=== PATIENT | male | born 1975 | race Caucasian/White ===

== ENCOUNTER 2018-12-22 06:46 | Inpatient (IN) ==
[2018-12-22] MEDS ORDERED: LABETALOL IV ONE ×2 (07:20→11:40)
--- NOTE | 2018-12-22 07:28 | EKG Report ---
Test Performed on : 12/22/2018 07:07:30 AM Test Reason : HTN Blood Pressure : / mmHG Vent. Rate : 111 BPM Atrial Rate : 111 BPM P-R Int : 166 ms QRS Dur : 102 ms QT Int : 370 ms P-R-T Axes : 051 -24 120 degrees QTc Int : 503 ms Sinus tachycardia. Left ventricular hypertrophy with repolarization abnormality Inferior infarct , age undetermined Abnormal ECG No previous ECGs available Unconfirmed Result
--- NOTE | 2018-12-22 07:33 | PROVIDER DOCUMENTATION ---
HPI-Abdominal Pain/GI Problem - General Chief Complaint: Abdominal Pain Stated Complaint: ABD PAIN Time Seen by Provider: 12/22/18 07:19 Source: patient Allergies/Adverse Reactions: Patient Allergies Allergy/AdvReac Type Severity Reaction Status Date / Time Unable to Assess Allergy Unverified 12/22/18 07:22 Home Medications: Home Medication List Medication Instructions Recorded Confirmed Last Taken Type Metoprolol Tartrate [Lopressor] 100 mg PO DAILY 12/22/18 12/22/18 12/01/18 History 100 mg Valsartan 320 mg PO DAILY 12/22/18 12/22/18 12/01/18 History - History of Present Illness-ABD Nature of Presenting Problems: generalized sgharp abd pain, intermittent for 4-5 days. Nothing makes better nor worse. No N/V/ or change in BM. At triage, was found to be hypertensive. Takes metoprolol and valsartan, but has been out for a week. No headache, no CP, no change in his chronic SOB Abdominal Pain Onset Location: reports: generalized abdomen Pain Radiation: reports: other (suprapubicx) Review of Systems - Adult - REVIEW OF SYSTEMS - ADULT Constitutional: reports: see HPI Eyes: reports: no symptoms reported Ears, Nose, Mouth & Throat: reports: no symptoms reported Cardiovascular: reports: no symptoms reported Respiratory: reports: see HPI Gastrointestinal: reports: see HPI Genitourinary: reports: no symptoms reported Musculoskeletal: reports: no symptoms reported Integumentary: reports: no symptoms reported Neurological: reports: no symptoms reported Psychiatric: reports: no symptoms reported Endocrine: reports: no symptoms reported Hematologic/Lymphatic: reports: no symptoms reported Allergic/Immunologic: reports: no symptoms reported Past History - Adult - PAST MEDICAL HISTORY-ADULT Review of Records: reports: Nursing Assessment Review, Medications Reviewed Cardiovascular: reports: HTN Respiratory: reports: denies history Gastrointestinal: reports: denies history Genitourinary: reports: denies history Musculoskeletal: reports: denies history Neurological: reports: denies history Psychiatric: reports: denies history Endocrine/Immune: reports: denies history Physical Exam-General - PHYSICAL EXAM-ADULT Initial Vital Signs Reviewed: Yes - CONSTITUTIONAL General Appearance: appears well, alert - EYES Eyes: PERRL/EOMI, pink conjunctivae - HEAD, EARS, NOSE, MOUTH & THROAT HENMT: normocephalic/atraumatic, moist mucous membranes, normal ENT inspection, pharynx normal - NECK Neck: full range of motion, supple, normal inspection - RESPIRATORY Respiratory: lungs clear, normal breath sounds, no pleuratic chest pain, no respiratory distress, no accessory muscle use - CARDIOVASCULAR Cardiovascular: normal peripheral pulses, regular rate, rhythm, no edema, no gal lop, no murmur - GASTROINTESTINAL (ABDOMEN) Abdominal Exam: normal bowel sounds, soft, distended (slighty), tenderness (ild- mod to Bilat LQ, cassandra-umbilical, epigastric) - MUSCULOSKELETAL Back Exam: normal inspection, no CVA tenderness, no vertebral tenderness Extremity: normal range of motion, non-tender, normal gait, normal inspection, no pedal edema - SKIN Integumentary: normal color, normal turgor, warm/dry - 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, grossly normal, no motor/sensory deficits - PSYCHIATRIC Psych/Mental Status: normal mood/affect, normal thought content, normal thought process, oriented x 3 Progress - PLAN OF CARE/RESULTS Progress/Plan/Lab Results: Vital Signs - 8 hr 12/22/18 06:56 12/22/18 07:07 Temperature 98.7 F Pulse Rate 93 H Respiratory Rate 20 Blood Pressure 270/179 O2 Sat by Pulse Oximetry 97 Orders Category Date Time Status Nursing- Obtain EKG ONCE Care 12/22/18 07:20 Active CHEST-1 VIEW [RAD] Stat Exams 12/22/18 07:20 Ordered CBC WITH DIFF [HEME] Stat Lab 12/22/18 07:20 Uncollected COMPREHENSIVE METABOLIC PANEL [CHEM] Stat Lab 12/22/18 07:20 Uncollected URINALYSIS [URINALYSIS] Stat Lab 12/22/18 07:20 Uncollected URINE DRUG SCREEN Stat Lab 12/22/18 07:21 Uncollected Labetalol Med 12/22/18 07:20 Discontinued 20 mg IV NOW ONE EKG [EKG] Stat Ther 12/22/18 07:20 Ordered Result Diagrams: 12/22/18 07:17 12/22/18 07:17 - EKG 1 Time of EKG reading by physician:: 07:13 EKG Read and Signed by:: Rajiv Garcia EKG Interpretation (*Must complete 3 of following elements*): Abnormal Rate: 111 Rhythm: sinus tach QRS: LVH (w) ST Wave: non-specific ST changes (repol changes from LVH) 2 Time of EKG reading by physician:: 08:20 EKG Read and Signed by:: Rajiv Garcia EKG Interpretation (*Must complete 3 of following elements*): Abnormal Rate: 93 Rhythm: NSR [place]: normal QRS: poor R wave progression, LVH ST Wave: non-specific ST changes Comments: prolonged QT - XRAY 1 XRAY Study: Chest Impression: Abnormal (cardiomegaly) - CT/MRI 1 CT Study: Abdomen, Pelvis Impression: Abnormal (EXAM: CT ABDOMEN/PELVIS W/O CONTRAST 12/22/2018 HISTORY: abd pain, and GFR too low TECHNIQUE: This exam was performed using automated exposure control, adjustment of mA or kV according to patient size, and/or use of iterative reconstruction technique. COMMENT: There are no previous studies available for comparison. There is cardiomegaly. There is a pericardial effusion which anteriorly measures over 8 mm in thickness. There is some motion artifact. There is no definite evidence of acute pulmonary disease in the visualized portion of the chest. There is subphrenic fluid present bilaterally. The spleen is not enlarged. The adrenal glands are not enlarged. There is no evidence of nephrolithiasis or hydronephrosis. Both kidneys are slightly atroph ic in appearance. The gallbladder isn't slightly distended. There are no discrete stones present. There is some gastrohepatic adenopathy with a node measuring over 2.2 cm. There is marked mesenteric adenopathy with a node on image 84 measuring in excess of 4.1 cm in length. There is an infrarenal left periaortic node measuring 2.4 x 1.9 cm. There is a small amount of fluid in the right paracolic gutter. There is apparent wall thickening in a loop of small bowel on the left side of the abdomen seen best around image 104 with induration in the surrounding mesenteric fat. The appendix is not enlarged or inflamed in appearance. There is some edema around the umbilicus. The colon is not distended . There is some stool in the colon particularly in the ascending and transverse colon. There is no evidence of mucosal thickening in the colon. There is a segment of the distal descending colon around image 135 which is nondistended. There is free fluid in the rectovesical pouch. There is diverticulosis in the sigmoid colon without evidence of acute diverticulitis. The urinary bladder is not distended. There is marked external iliac adenopathy bilaterally. There is a bone island in the right femoral head and another on the left. There is bilateral spondylolysis at L5 without evidence of spondylolisthesis. Otherwise are has no evidence of acute bony abnormality. IMPRESSION: 1. Retroperitoneal and mesenteric adenopathy consistent with lymphoma. 2. The possibility of lymphomatous involvement in the mid jejunum cannot be excluded. Less likely would be a primary lesion of the small bowel. 3. Cardiomegaly and pericardial effusion. 4. Minimal ascites. Other nonacute findings as described above. Electronically signed by Rubén Krause 12/22/2018 9:20 AM) - CONSULTS/PCP/HOSPITALIST Notification #1 *Consult/PCP/Hospitalist*: [place] Time Discussed: 10:11 Consult Disposition: Will see in ED, Admit Departure - Departure Date of Disposition Decision: 12/22/18 Time of Disposition Decision: 08:29 DIAGNOSIS: Acute kidney injury, Non-compliance Lymphoma Qualifiers: Lymphoma type: unspecified type Lymphoma site: intra-abdominal nodes Qualified Code(s): C85.93 - Non-Hodgkin lymphoma, unspecified, intra-abdominal lymph nodes Hypertension Qualifiers: Hypertension type: essential hypertension Qualified Code(s): I10 - Essential (primary) hypertension Disposition: ADMITTED INPATIENT 09 Certified Medical Emergency: Emergent Condition: Good Referrals and Follow-Ups: None,PCP [Primary Care Provider] - - Critical Care Note This patient required my direct & personal management of CC.: No Attestation - Physician/ PATY Attestation Patient care was provided by Advanced Practice Provider:: No The physician spent face to face time with patient:: Yes Advanced Practice Provider documentation review:: Supervising physician onsite and consulted in the evaluation and care of this patient. The physician did have a face to face encounter with the patient.
--- NOTE | 2018-12-22 07:36 | Diag Imaging Result Doc PS360 ---
EXAM: CHEST-1 VIEW 12/22/2018 HISTORY: HTN TECHNIQUE: AP portable upright at 0729 COMMENT: There is cardiomegaly. The inspiration is suboptimal. No evidence of acute pulmonary disease is present and there are no previous studies available for comparison. IMPRESSION: Cardiomegaly. Electronically signed by Rubén Krause 12/22/2018 7:34 AM
[2018-12-22] MEDS ORDERED: MORPHINE IV ONE (07:49)
[2018-12-22 08:18] LABS: URINE SOURCE CLEAN CATCH
[2018-12-22 08:24] LABS: BASO# 0.05 X1000 (0.0-0.2); BASO% 0.2 % (0.0-0.8); EOS# 0.15 X1000 (0.0-0.7); EOS% 0.6 % (0.0-10.0); HEMATOCRIT 38.1 % (42.0-52.0); IMM GRAN# 0.09 X1000 (0.0-0.04); IMM GRAN% 0.4 % (0.0-0.5); LYMPH% 6.6 % (20.5-51.1); MCH 25.8 PG (27-31); MCHC 34.1 g/dL (33-37); MCV 75.6 FL (81-99); MONO# 1.75 X1000 (0.11-0.59); MONO% 7.2 % (1.7-9.3); MPV 12.6 FL (7.4-10.4); NEUT# 20.52 X1000 (1.4-6.5); PLT 133 X1000 (130-400); RBC 5.04 XMIL (4.7-6.1); RDW 15.7 % (11.5-14.5); WBC 24.16 X1000 (4.8-10.8)
[2018-12-22 08:27] LABS: ALBUMIN 2.8 g/dL (3.5-5.0); CALCIUM 7.1 mg/dL (8.8-10.2); CREATININE 5.6 mg/dL (0.7-1.2); POTASSIUM 3.8 mmol/L (3.5-5.1); TOTAL BILIRUBIN 0.32 mg/dL (0.20-1.00); TOTAL PROTEIN 5.6 g/dL (6.3-8.3)
[2018-12-22 08:37] LABS: BILIRUBIN URINE NEGATIVE (NEGATIVE); BLOOD URINE MODERATE (NEGATIVE); COLOR YELLOW; GLUCOSE URINE 100 mg/dL (NEGATIVE); KETONE URINE NEGATIVE (NEGATIVE); LEUKOCYTES URINE NEGATIVE (NEGATIVE); NITRITE URINE NEGATIVE (NEGATIVE); PROTEIN URINE 300 mg/dL (NEGATIVE); SP GRAVITY URINE 1.019; TURBIDITY URINE CLEAR (CLEAR); UROBILINOGEN URINE NORMAL (NORMAL)
[2018-12-22 08:38] LABS: UR EPITHELIAL CELLS <10 /HPF (<10); URINE BACTERIA NEGATIVE /HPF; URINE WBC <10 /HPF (<10)
--- NOTE | 2018-12-22 09:23 | Diag Imaging Result Doc PS360 ---
EXAM: CT ABDOMEN/PELVIS W/O CONTRAST 12/22/2018 HISTORY: abd pain, and GFR too low TECHNIQUE: This exam was performed using automated exposure control, adjustment of mA or kV according to patient size, and/or use of iterative reconstruction technique. COMMENT: There are no previous studies available for comparison. There is cardiomegaly. There is a pericardial effusion which anteriorly measures over 8 mm in thickness. There is some motion artifact. There is no definite evidence of acute pulmonary disease in the visualized portion of the chest. There is subphrenic fluid present bilaterally. The spleen is not enlarged. The adrenal glands are not enlarged. There is no evidence of nephrolithiasis or hydronephrosis. Both kidneys are slightly atrophic in appearance. The gallbladder isn't slightly distended. There are no discrete stones present. There is some gastrohepatic adenopathy with a node measuring over 2.2 cm. There is marked mesenteric adenopathy with a node on image 84 measuring in excess of 4.1 cm in length. There is an infrarenal left periaortic node measuring 2.4 x 1.9 cm. There is a small amount of fluid in the right paracolic gutter. There is apparent wall thickening in a loop of small bowel on the left side of the abdomen seen best around image 104 with induration in the surrounding mesenteric fat. The appendix is not enlarged or inflamed in appearance. There is some edema around the umbilicus. The colon is not distended. There is some stool in the colon particularly in the ascending and transverse colon. There is no evidence of mucosal thickening in the colon. There is a segment of the distal descending colon around image 135 which is nondistended. There is free fluid in the rectovesical pouch. There is diverticulosis in the sigmoid colon without evidence of acute diverticulitis. The urinary bladder is not distended. There is marked external iliac adenopathy bilaterally. There is a bone island in the right femoral head and another on the left. There is bilateral spondylolysis at L5 without evidence of spondylolisthesis. Otherwise are has no evidence of acute bony abnormality. IMPRESSION: 1. Retroperitoneal and mesenteric adenopathy consistent with lymphoma. 2. The possibility of lymphomatous involvement in the mid jejunum cannot be excluded. Less likely would be a primary lesion of the small bowel. 3. Cardiomegaly and pericardial effusion. 4. Minimal ascites. Other nonacute findings as described above. Electronically signed by Rubén Krause 12/22/2018 9:20 AM
[2018-12-22 09:32] LABS: UR AMPHETAMINES QUAL PRESUMPTIVE POSITIVE (NONE DETECT); UR BARBITUATES QUAL NONE DETECTED (NONE DETECT); UR BENZODIAZEPIN QUAL NONE DETECTED (NONE DETECT); UR OPIATES QUAL NONE DETECTED (NONE DETECT)
[2018-12-22 09:33] LABS: UR CANNABINOIDS QUAL NONE DETECTED (NONE DETECT); UR COCAINE QUAL NONE DETECTED (NONE DETECT); UR METHADONE QUAL NONE DETECTED (NONE DETECT); UR OXYCODONE QUAL NONE DETECTED (NONE DETECT); UR PCP QUAL NONE DETECTED (NONE DETECT)
[2018-12-22 09:57] LABS: BANDS 2 % (0-1); LYMPHS 8 % (21-51); SEGS 90 % (42-75)
[2018-12-22] MEDS ORDERED: CARDENE 20 MG/NS 20 MG/200 ML PIGGYBACK IV SCH (11:00)
[2018-12-22 13:01] LABS: HEMOGLOBIN A1C 6.4 % (4.8-6.0)
--- NOTE | 2018-12-22 13:21 | Diag Imaging Result Doc PS360 ---
EXAM: CT THORAX W/O CONTRAST 12/22/2018 HISTORY: lymphoma TECHNIQUE: This exam was performed using automated exposure control, adjustment of mA or kV according to patient size, and/or use of iterative reconstruction technique. COMMENT: There is dependent atelectasis present in the right lower lobes and lingula particularly the right lower lobe. There is no evidence of significant adenopathy in the mediastinum hilum or axilla. The heart size is enlarged. There is a small pericardial effusion which measures less than 5 mm in thickness anteriorly. There is fluid in the subphrenic spaces bilaterally. There is a fairly large amount of stool present in the transverse colon. The regional skeleton appears to be intact. IMPRESSION: Atelectasis particularly in the right lower lobe. Small pericardial effusion. Ascites. Constipation. Electronically signed by Rubén Krause 12/22/2018 1:18 PM
[2018-12-22] MEDS: CARDENE 20 MG/NS 20 MG/200 ML PIGGYBACK IV SCH ×4 (13:38→23:11)
--- NOTE | 2018-12-22 13:40 | HISTORY AND PHYSICAL ---
PRIMARY CARE PROVIDER: Unknown. CHIEF COMPLAINT: The patient could not remember after given morphine. However, per EMR for abdominal pain. HISTORY OF PRESENT ILLNESS: Mr. Zarate is a 43-year-old male who carries a past medical history of hypertension, takes metoprolol and valsartan. However, he has been out for some time. He reported to the ED with generalized sharp abdominal pain that has been intermittent for the last 4 to 5 days. Nothing made it better or worse. No nausea, vomiting, or change in BM. In triage, he was found to be hypertensive 200's/150s. Further workup in the ER showed a white count of 24. Acute renal failure with a BUN of 86 and a creatinine of 5.6. Abdomen and pelvis CT showed retroperitoneal mesenteric adenopathy consistent with lymphoma, cardiomegaly with a pericardial effusion and minimal ascites. The patient was unable to give much of a history secondary to being given morphine. He had to be awakened several times upon examination, I could not get a good history on him. We will admit him to the ICU. His blood pressures were still 220s over 150s. We will start him on a Cardene drip. We will consult Oncology, Cardiology, as well as Nephrology for further workup and evaluation. PAST MEDICAL HISTORY: Hypertension. PAST SURGICAL HISTORY: Denies but unknown. SOCIAL HISTORY: He reports he is not . No children, and all of his family is . He was not able to tell me where he is from. He reports no tobacco, alcohol or illicit drug use. However, his tox screen was positive for amphetamines. FAMILY HISTORY: He believes his mother of CHF. He reports his father is . He could not remember why. REVIEW OF SYSTEMS: Hard to obtain secondary to the patient getting morphine. PHYSICAL EXAMINATION: VITAL SIGNS: Temperature 98.7 degrees, heart rate 99, respirations 28, blood pressure 212/152, and O2 is 96 on room air. GENERAL: Mr. Zarate is a sedated 43-year-old male who does wake up to tactile stimuli, but goes right back to sleep. He was really not able to participate during the examination, and seemed be unphased of his test results. HEENT: Atraumatic, normocephalic. PERRL. NECK: Supple. Trachea midline. CARDIOVASCULAR: S1, S2 appreciated. No murmurs, gallops, or rubs noted. RESPIRATORY: Lung sounds clear bilaterally GI: Soft, and appears to be nontender. Nondistended. Positive bowel sounds 4 quadrants. EXTREMITIES: Lower extremities are negative for edema. NEUROLOGIC: Hard to assess secondary to the patient getting morphine, however, could not appreciate any focal deficits. DIAGNOSTIC DATA: As per HPI. LABORATORY DATA: White count 24, hemoglobin and hematocrit 13 and 38, and platelet count is 133,000. Sodium 132, potassium 3.8, BUN 86, creatinine 5.6, blood glucose is 184. Urinalysis has 300 protein, 100 glucose, moderate blood, negative for nitrates, negative for bacteria. Toxicology screen was positive for amphetamines. ASSESSMENT AND PLAN: 1. Hypertensive urgency. We will place the patient in the ICU. Initiate him on a Cardene drip. Consult Cardiology. 2. Retroperitoneal mesenteric adenopathy consistent with lymphoma. We will consult Dr. Hampton for further testing and evaluation. 3. Cardiomegaly and pericardial effusion. We will get an echocardiogram as well as consult Cardiology. 4. Acute renal failure with atrophic kidneys. We will consult Dr. Alba for further evaluation and treatment. 5. Hypertension. The patient does take metoprolol and losartan at home. However, there is question of his medical compliance. 6. Leukocytosis: Likely reactive. No obvious source of infection. 7. Hyperglycemia. We will check hemoglobin A1c. Continue with pattern blood sugars. 8. Proteinuria secondary to uncontrolled hypertension. 9. Anemia. Continue with further testing. 10. Further recommendation to follow physician evaluation. 11. Mild hyponatremia. 12. Further recommendations to follow physician evaluation, laboratory and diagnostic data. Dictated by MIGUELITO Arevalo for Delmy Rosales MD cc: MD Izabela Rocha MD Reginald D. Gladish, MD William D. Denney, MD I performed a face to face encounter on the patient. I reviewed all labs and imaging on the patient. I agree with the H&P as dictated. [facility]
[2018-12-22] MEDS: NS 1,000 ML IV SCH ×2 (13:47→23:20)
[2018-12-22 13:52] LABS: AMYLASE 59 U/L (20-200); LIPASE 17 U/L (13-60)
--- NOTE | 2018-12-22 14:24 | EKG Report ---
Test Performed on : 12/22/2018 08:15:05 AM Test Reason : ED.. No order in [place] Blood Pressure : / mmHG Vent. Rate : 093 BPM Atrial Rate : 093 BPM P-R Int : 180 ms QRS Dur : 098 ms QT Int : 420 ms P-R-T Axes : 054 -16 130 degrees QTc Int : 522 ms Normal sinus rhythm. Possible Left atrial enlargement Left ventricular hypertrophy Cannot rule out Septal infarct , age undetermined Inferior infarct (cited on or before 22-DEC-2018) ST & T wave abnormality, consider lateral ischemia Prolonged QT Abnormal ECG When compared with ECG of 22-DEC-2018 07:07, (Unconfirmed) Minimal criteria for Septal infarct are now present Unconfirmed Result
[2018-12-22 14:38] LABS: URINE SOURCE CATH
[2018-12-22 14:44] LABS: BILIRUBIN URINE NEGATIVE (NEGATIVE); BLOOD URINE MODERATE (NEGATIVE); COLOR YELLOW; GLUCOSE URINE 100 mg/dL (NEGATIVE); KETONE URINE NEGATIVE (NEGATIVE); LEUKOCYTES URINE NEGATIVE (NEGATIVE); NITRITE URINE NEGATIVE (NEGATIVE); PH URINE 5.5; PROTEIN URINE 300 mg/dL (NEGATIVE); SP GRAVITY URINE 1.016; TURBIDITY URINE CLEAR (CLEAR); UROBILINOGEN URINE NORMAL (NORMAL)
[2018-12-22 14:47] LABS: UR EPITHELIAL CELLS <10 /HPF (<10); URINE BACTERIA NEGATIVE /HPF; URINE RBC <10 /HPF (<10); URINE WBC <10 /HPF (<10)
--- NOTE | 2018-12-22 16:02 | ECHO REPORT ---
ORDER DATE: 12/22/2018 INTERPRETING PHYSICIAN: Manuelito Dunbar MD. CLINICAL INDICATIONS: Pericardial effusion. M-MODE MEASUREMENTS: Left ventricle end diastole: 4.4 cm. Left ventricle end systole: 3.4 cm. Posterior wall: 1.6 cm. Interventricular septum: 1.6 cm. Left atrium: 4.3 cm. Aortic diameter: 3.7 cm. SUMMARY OF 2-DIMENSIONAL IMAGIN. There is moderate concentric LVH. Left ventricular systolic function appears to be moderately decreased estimated in the order of 40% to 45%. The impairment appears to be global. 2. A small pericardial effusion appears to be present. 3. The atria are not particularly dilated. 4. The mitral valve shows [id number] degree of regurgitation. 5. Pulse wave Doppler of mitral inflow shows "normal" E/A ratio. 6. Tissue Doppler of septal and lateral mitral annulus averages 6 cm. The deceleration of slope of the E wave is short suggesting elevation of left atrial pressure. The E/E prime ratio is borderline elevated. 7. The LVOT VTI is decreased at 13.5 cm suggesting that the patient may be in a low cardiac output state. 8. The aortic valve is not significantly calcified. There is trivial degree of aortic valve regurgitation. 9. The tricuspid valve shows mild degree of regurgitation. 10.Inferior vena cava is not dilated. 11.Pulmonary pressure is estimated at 34 mmHg. 12.Pulmonic valve was unremarkable. 13.Optison was added to optimize visualization of endocardium. Clinical correlation is recommended. cc: Manuelito Dunbar MD
[2018-12-22] MEDS: HUMULIN R SUBQ SCH ×2 (17:00→23:18)
[2018-12-22 17:08] LABS: BLOOD TYPE ARTERIAL; SAMPLE BLOOD
[2018-12-22 17:09] LABS: ALLEN TEST YES; BE -8.3 mmoll (-3.0-3.0); HCO3-(ACT) 18.4 mmoll (20.0-26.0); METHB 1.1 % (0.0-1.5); MODALITY ROOM AIR; O2(CT) 15.8 mL/dL (15.0-23.0); O2HB 94.1 % (95.0-99.0); PCO2(98.6) 27 mmHg (35-45); PO2(98.6) 76 mmHg (60-100); SAO2 96.7 % (95.0-100.0); THB 11.9 g/dL (11.5-17.4); pH(98.6) 7.37 (7.35-7.45)
[2018-12-22 17:38] LABS: CK INDEX 1.9 (0.0-2.5); CK-MB 8.9 ng/mL (0.0-5.0)
[2018-12-22] MEDS: ZYVOX 600 MG/D5W 600 MG/300 ML IVPB IV SCH (17:52)
[2018-12-22] MEDS: MAXIPIME 1 GM in NS 50 ML IV SCH (17:52)
[2018-12-22 19:05] LABS: UR PROT RANDOM 187.3 mg/dL
[2018-12-22 19:07] LABS: UR CREAT RANDOM 86.7 mg/dL (14-26)
[2018-12-22] MEDS: TRANDATE PO SCH (20:04)
[2018-12-22] MEDS: COLACE PO SCH (20:06)
[2018-12-22] MEDS: MIRALAX PO SCH (20:06)
[2018-12-22] MEDS: DULCOLAX PR SCH (20:06)
[2018-12-22] MEDS: MORPHINE IV PRN (20:07)
[2018-12-22] MEDS ORDERED: HEPARIN SUBQ SCH (21:00)
--- NOTE | 2018-12-22 21:34 | CONSULTATION ---
DATE OF CONSULTATION: 12/22/2018 IMPRESSION: 1. Severe hypertension in setting of recent noncompliance with a 2-drug antihypertensive regimen. 2. Hypertensive cardiovascular disease with moderate concentric left hypertrophy on echocardiography, with left ejection fraction of 40% 45% and mild moderate mitral regurgitation. 3. Acute on chronic renal failure with reportedly atrophic kidneys. 4. Abdominal pain as presenting symptom with retroperitoneal mesenteric adenopathy demonstrated on imaging studies, suggesting likely lymphoma. RECOMMENDATIONS: 1. Agree with use of nicardipine drip parenterally to try bring blood pressure under control. 2. Add labetalol orally. HISTORY: This is a 43-year-old white male with a past history of hypertension requiring a 2-drug regimen who was admitted for further management of hypertensive urgency. He has been on a beta- manuel and ARB in the past for his blood pressure. Relates that he ran out a month ago. For the last several days, he has been having abdominal discomfort which prompted him to come to the emergency room. There, he was noted to be severely hypertensive. CT scan demonstrated retroperitoneal and mesenteric adenopathy consistent with lymphoma. He has been started on a nicardipine drip and admitted to the ICU, and his blood pressure is less elevated at this time. There has been no chest pain. He has some chronic tendency for exertional shortness of breath. He does not smoke. He drinks an occasional alcoholic beverage. He admits to smoking methamphetamine and did so recently. PAST MEDICAL HISTORY: Hypertension. MEDICATIONS PRIOR TO ADMISSION: Include a beta manuel and ARB. ALLERGIES: Has no known drug allergies. SOCIAL HISTORY: He is single. 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 He does not smoke or use alcohol. He does admit to use of methamphetamine, which he smokes. FAMILY HISTORY: Negative for premature coronary disease. REVIEW OF SYSTEMS: Pulmonary: Noteworthy for tendency for prominent snoring. He has been advised to have screening for sleep apnea in the past. He has some chronic exertional shortness of breath but no orthopnea. There has been no cough. Gastrointestinal: Noteworthy for abdominal pain but otherwise negative. Constitutional: Noncontributory. Remainder of the review of systems negative/noncontributory with 14 total systems reviewed. PHYSICAL EXAMINATION: General: This is an obese adult male in no distress. He is somewhat drowsy, as the parenteral narcotic administered in emergency room is wearing off. Vital signs: Blood pressure 157/96, heart rate 101. Oxygen saturation 91% on room air. HEENT: Extraocular movements intact. Mucous membranes moist. Neck: Supple. Jugular venous pressure appears to be mildly elevated. Chest: Clear to auscultation. Cardiac Exam: Reveals a regular rate and rhythm without appreciable murmur or gallop. Abdomen: Soft. Bowel sounds normal. Extremities: Demonstrate trace edema. Neurologic: Reveals him to be drowsy but interactive. Speech is fluent. He moves all 4 extremities equally well. PERTINENT DATA: A 12-lead electrocardiogram demonstrates normal sinus rhythm, left atrial abnormality, and left ventricular hypertrophy with repolarization abnormality. LABORATORY DATA: Includes a white blood cell count 24.16, hematocrit 38.1, hemoglobin 13.0 platelet count 133, sodium 132, potassium 3.8, chloride 97, carbon dioxide 14, BUN 86, creatinine 5.6, glucose 184. Amylase 59, lipase 17, albumin 2.8. Toxicology/urine drug screen positive for amphetamines. Echocardiography reports moderate concentric left hypertrophy with estimated left ejection fraction of 40% to 45%, mild to moderate mitral regurgitation. cc: Darian Story MD
--- NOTE | 2018-12-22 21:35 | NEPHROLOGY CONSULTATION ---
DATE: 12/22/2018 REASON FOR ADMISSION: Complaints of abdominal discomfort. REASON FOR CONSULT: Is acute kidney injury, assistance with medical management. CONSULTING PHYSICIAN: Dr. Delmy Rosales. HISTORY OF PRESENT ILLNESS: Mr. Zarate is a 43-year-old male who has a history of hypertension who states he takes metoprolol and valsartan. He stated that he had reported to the Emergency Room Department after sharp abdominal discomfort for the last 4 to 5 days. He denies any vomiting, nausea, no change of bowel movement. States that he has not been able to peanut picker his blood pressure medication in the last 5 days after he had run out. Blood pressure upon presentation in the emergency room was 200s over the 150s. In the emergency room he was found to have a white count of 24.16, a BUN of 86, a creatinine of 5.6. Hemoglobin stable at 13. CT of the abdomen showed retroperitoneal mesenteric adenopathy consistent with lymphoma near the jejunum, cardiomegaly with pericardial effusions and minimal ascites and constipation. The patient had been given morphine in the emergency room. He falls asleep very easily during examination and review of systems. States that he had seen a turn out worker in [facility] in the past. Knows that he had an ultrasound and they had indicated that his kidneys were normal. Due to his elevated blood pressure he is currently on a Cardene drip. He is to be admitted to the ICU for monitoring evaluation. There are current consults for referral for Oncology and Cardiology. We have been requested to monitor the patient and to evaluate his acute kidney injury. PAST MEDICAL HISTORY: Only noted as hypertension. PAST SURGICAL HISTORY: Denies. SOCIAL HISTORY: He reports that he has recently taken a job outside of [facility] now in [place]. He reports no tobacco or alcohol. Does state that he did have some meth in the last 1 to 2 days. Toxicology is positive for methamphetamines. FAMILY HISTORY: Mother he believes from heart failure. Father is , unknown cause. ALLERGIES: States no known drug allergies. HOME MEDICATIONS: As listed above with valsartan and metoprolol doses unknown. REVIEW OF SYSTEMS: As best obtained above. No family available with patient at bedside. Current vital signs temperature 98.7 degrees, blood pressure 152/104, heart rate was 99, respirations are 26, previous temperature 98.7. CURRENT LABS: Sodium 132, potassium 3.8, chloride 97, CO2 14, BUN 86, creatinine 5.6, glucose 184, anion gap 21, calcium 7.1, albumin 2.8, white count 24.16, hemoglobin 13, hematocrit 38.1 with a platelet count of 133,000. A1c has been drawn of 6.4. PHYSICAL EXAMINATION: General: This is a 43-year-old white male he appears in no acute distress. Still lethargic from a dose of morphine, drifts off to sleep during interview. HEENT: Normocephalic, atraumatic. Conjunctiva is pale. He does have ELVA though these are slightly dilated. Cardiovascular: Regular rate and rhythm. No murmur or gallop appreciated. Lungs: Clear to auscultation bilateral. Equal excursion. Abdomen: Tender on palpation, nondistended, positive bowel sounds present. Genitourinary: Not inspected. Extremities: No edema, no clubbing or cyanosis. Neurological: As mentioned above. ASSESSMENT AND PLAN: 1. Acute kidney injury. This appears to be multifactorial. The patient has experienced a severe hypotensive, hypertensive urgency, currently on Cardene drip, previous history of referral to Nephrology though kidney level unknown. He is currently on a Cardene drip. We will check urine electrolytes. CT of the abdomen does not indicate any hydronephrosis. Positive for proteinuria, blood, negative for bacteria. We will check urine electrolytes and evaluate further plan. 2. Hypertensive urgency. As mentioned, patient is currently on Cardene drip with cardiology consult. 3. Electrolytes and acid-base balance. Patient is in metabolic acidosis more likely related to #1. We will check a CPK to rule out rhabdomyolysis. May require a sodium bicarbonate drip. 4. Anemia. This is in target. 5. Retroperitoneal mesenteric adenopathy with lymphoma. Dr. Hampton has been consulted for further monitoring evaluation. 6. Leukocytosis. The patient has no source of infection. There is no antibiotic on board at this time. Like to thank you for allowing us to follow with this patient. Dictated by MIGUELITO Avalos for Leon Alba MD Face to face encounter, data reviewed, discussed with Gregory Rasmussen on 12/22/18. He is sedated and I am unable to arouse him. I agree with the above assessment and plan of care. cc: MIGUELITO Avalos MD [facility]
[2018-12-23] MEDS: CARDENE 20 MG/NS 20 MG/200 ML PIGGYBACK IV SCH ×2 (01:25→20:02)
[2018-12-23] MEDS: MORPHINE IV PRN ×4 (04:58→20:48)
[2018-12-23] MEDS: ZYVOX 600 MG/D5W 600 MG/300 ML IVPB IV SCH ×2 (05:02→17:30)
--- NOTE | 2018-12-23 07:25 | Diag Imaging Result Doc PS360 ---
EXAM: CHEST-PORTABLE HISTORY: follow up TECHNIQUE: Portable chest single view COMPARISON: 12/22/2018 FINDINGS: The lungs are well expanded. The heart remains enlarged. There is mild central vascular distention. No pleural effusions identified. No consolidation. IMPRESSION: Stable chest. Electronically signed by Nasim Miller 12/23/2018 7:22 AM
[2018-12-23] MEDS: PROTONIX IV SCH (07:31)
[2018-12-23 07:32] LABS: BASO# 0.04 X1000 (0.0-0.2); BASO% 0.3 % (0.0-0.8); EOS# 0.41 X1000 (0.0-0.7); EOS% 2.6 % (0.0-10.0); HEMATOCRIT 29.6 % (42.0-52.0); HEMOGLOBIN 9.9 g/dL (14.0-18.0); IMM GRAN# 0.03 X1000 (0.0-0.04); IMM GRAN% 0.2 % (0.0-0.5); LYMPH% 10.8 % (20.5-51.1); MCH 25.4 PG (27-31); MCHC 33.4 g/dL (33-37); MCV 75.9 FL (81-99); MONO# 1.36 X1000 (0.11-0.59); MONO% 8.6 % (1.7-9.3); MPV 12.6 FL (7.4-10.4); NEUT% 77.5 % (42.2-75.2); PLT 119 X1000 (130-400); WBC 15.74 X1000 (4.8-10.8)
[2018-12-23] MEDS: HUMULIN R SUBQ SCH ×4 (07:32→20:48)
[2018-12-23 08:06] LABS: ALBUMIN 2.4 g/dL (3.5-5.0); CREATININE 5.8 mg/dL (0.7-1.2); POTASSIUM 3.5 mmol/L (3.5-5.1)
[2018-12-23 08:11] LABS: CALCIUM 6.8 mg/dL (8.8-10.2)
[2018-12-23] MEDS: MIRALAX PO SCH ×2 (09:00→22:00)
[2018-12-23] MEDS: TRANDATE PO SCH ×2 (09:05→20:48)
[2018-12-23] MEDS: MAXIPIME 1 GM in NS 50 ML IV SCH (09:05)
[2018-12-23] MEDS: COLACE PO SCH ×2 (09:05→20:48)
[2018-12-23] MEDS: SODIUM BICARBONATE PO SCH ×2 (09:26→20:48)
[2018-12-23] MEDS: NS 1,000 ML IV SCH ×2 (09:26→17:30)
--- NOTE | 2018-12-23 12:12 | CONSULTATION ---
DATE: 12/23/2018 REASON FOR CONSULTATION: Evaluation of possible lymphoma. HISTORY OF PRESENT ILLNESS: This is a 43-year-old male who came to the ER yesterday with a complaint of abdominal pain for the prior 4-5 days. He denies nausea, vomiting, or diarrhea. Upon assessment, he was found to be severely hypertensive with a white count of 24,000. The patient states he has a history of hypertension and takes metoprolol and valsartan, however, he had ran out of his medications sometime earlier in the week. He was also noted to be in acute renal failure with a BUN of 86 and a creatinine of 5.6. Abdomen and pelvis CT showed retroperitoneal mesenteric adenopathy consistent with lymphoma as well as cardiomegaly with a pericardial effusion and minimal ascites. The patient was started on a Cardene drip in the ER. He was also medicated with morphine for his pain. He was also positive for methamphetamines on his drug screen. The patient has difficulty staying awake in order to conversate. His speech is very garbled. It is difficult to understand his answers to questions. PAST MEDICAL HISTORY: Hypertension. PAST SURGICAL HISTORY: Unknown. SOCIAL HISTORY: He supposedly denies smoking or alcohol. Positive for methamphetamine. REVIEW OF HISTORY: Unable to obtain. ALLERGIES: No known drug allergies. HOME MEDICATIONS: Metoprolol and valsartan. PHYSICAL EXAMINATION: Vital signs: Temperature 98.6, pulse rate 94, respiratory rate 21, blood pressure 134/89, O2 saturation 92% on room air. General: The patient is sedated. He appears to be in no acute distress. He is obese with a BMI of 30.6. He is lethargic and does not answer questions appropriately. HEENT: Sclera is anicteric. PERRLA. Oral mucosa dry. Cardiovascular: Normal S1, S2. No murmurs, gallops, or rubs noted. Respiratory: Lung sounds are clear bilaterally. Gastrointestinal: Abdomen is significantly distended, protuberant, but soft. No tenderness elicited. Positive bowel sounds. Extremities: No lower extremity edema noted. Neurological: Difficult to assess. The patient is very lethargic. LABORATORY: WBC 15.74, hemoglobin 9.9, hematocrit 29.6, platelet count 119,000, ANC 12.2. Creatinine 5.8, calcium 6.8, magnesium 2.4, LDH 369. Toxicology screen was positive for amphetamines. RADIOLOGY: See HPI. Today's chest x-ray shows lungs well-expanded, heart is enlarged, mild central vascular distention, no pleural effusion. ASSESSMENT: 1. Retroperitoneal mesenteric adenopathy. 2. Hypertensive urgency. Started on a Cardene drip. Blood pressure currently within normal limits. 3. Acute renal failure with atrophic kidney. Nephrology following. 4. Leukocytosis most likely reactive. PLAN: Continue to treat the patient for medical management and critical care. We will evaluate the patient his lymphadenopathy when he is better from his medical condition. We will continue to follow along with you. Dictated by MIGUELITO Anthony for Anderson Franco MD cc: Anderson Franco MD MTD
--- NOTE | 2018-12-23 12:41 | NEPHROLOGY PROGRESS NOTE ---
DATE: 12/23/2018 TIME SEEN: 07:05. SUBJECTIVE: Mr. Zarate is resting quietly in bed. States that he has had abdominal discomfort this morning. Denies chest pain or increased work of breathing. OBJECTIVE: VITAL SIGNS: Temperature 98.5 degrees, blood pressure 155/84, heart rate 110, respirations 21. He is on room air. Last recorded saturation 95%. He has had 100 in, he has had 1525 out to Meadows catheter. LABORATORY DATA: The patient's most recent labs, sodium 134, potassium 3.5, chloride 99, CO2 14, BUN of 89. His creatinine is 5.8, glucose is 145. The patient has an anion gap of 21. His calcium is 6.8, phosphorus of 7, magnesium 2.4, albumin 2.4. White count 15.75, hemoglobin 9.9, hematocrit is 29.6 with a platelet count of 119,000. TSH is 1.55. PHYSICAL EXAMINATION: General: This is a 43-year-old white male. He is resting quietly in bed. Skin: Warm and dry. HEENT: Normocephalic, atraumatic. Conjunctiva is pale. He has ELVA. Mucous membranes are dry. Neck: Supple. Trachea midline. No evidence of JVD. Cardiovascular: Regular rate and rhythm. He is tachycardic today, 110. The patient also has an S4. Lungs: Clear to auscultation bilaterally. Equal excursion. He is on room air. Abdomen: Slightly distended, tender to palpation. Genitourinary: Meadows catheter is in place. Adequate urine out documented. Extremities: Have 1+ lower extremity edema. No clubbing or cyanosis. Neurological: Alert and oriented x3. ASSESSMENT AND PLAN: 1. Acute kidney injury on chronic kidney disease. The patient states that he has a baseline creatinine in the 2's in 2017. Unclear if he has SHANE overlying CKD or simply progression of CKD in the context of poor BP management. Conservative care for now. Focus on BP control. 2. Electrolytes. These are stable. 3. Acid-base balance. The patient has an anion gap of 21 with a CO2 of 14. We will start him on p.o. sodium bicarbonate. The patient had an initial CPK of 470 with no appearance of acute rhabdomyolysis ruled out. 4. Anemia. Hemoglobin has dropped from [address] Franco has been consulted. 5. Lymphoma noted on CT of the abdomen. Again, Dr. Franco has been consulted to follow. 6. Hypertension. Improving with treatment. rg I would like to thank you for allowing us to follow with this patient. Dictated by MIGUELITO Avalos for Leon Alba MD Face to face encounter, data reviewed, discussed with Gregory Rasmussen on 12/23/18. I agree with the above assessment and plan of care. cc: MIGUELITO Avalos MD [facility]
[2018-12-23] MEDS ORDERED: NORVASC PO SCH (13:45)
--- NOTE | 2018-12-23 13:56 | PROGRESS NOTE ---
DATE: 12/23/2018 SUBJECTIVE: The patient is now off of Cardene drip. He denies any chest discomfort or shortness of breath. He continues to complain of abdominal discomfort. He snores prominently when asleep, and has some tendency for drowsiness. OBJECTIVE: Vital Signs: Blood pressure 170/104, heart rate 97, oxygen saturation 95% on room air. Neck: There is no significant jugular venous distention. Chest: Clear to auscultation. Cardiac: Examination reveals a regular rate and rhythm without appreciable murmur or gallop. There is no evidence of peripheral edema. LABORATORY DATA: Laboratory data includes a white blood cell count of 15.74, hematocrit 29.6, hemoglobin 9.9, platelet count 119,000. Sodium 134, potassium 3.5, chloride 99, carbon dioxide 14, BUN 89, creatinine 5.8, glucose 145. IMPRESSION: 1. Severe hypertension, with hypertensive urgency in the setting of noncompliance. Blood pressure coming under control. 2. Hypertensive cardiovascular disease, with moderate concentric left hypertrophy and estimated ejection fraction of 40 to 45%. 3. Acute on chronic renal failure, with reportedly atrophic kidneys. 4. Abdominal pain with associated retroperitoneal mesenteric adenopathy suggesting likely lymphoma. RECOMMENDATIONS: 1. Increase labetalol to 200 mg p.o. b.i.d. 2. Add amlodipine 5 mg p.o. daily. cc: Darian Story MD
--- NOTE | 2018-12-23 16:15 | PROGRESS NOTE ---
DATE: 12/23/2018 SUBJECTIVE: The patient is resting in bed. He complains of lower abdominal pain and reports that he had dark tarry stools prior to admission. OBJECTIVE: Vital Signs: Temperature 98.6 degrees, blood pressure 163/103, heart rate 99, respirations 22, O2 saturation 95% on room air. General: This is a middle-aged male lying in bed in no acute distress. Head: Normocephalic, atraumatic. Heart: S1, S2 normal. Tachycardic. Lungs: Equal air entry bilaterally. No wheezing. No rales. Abdomen: Positive bowel sounds. Soft, nontender, nondistended. Extremities: No edema, no cyanosis, no calf tenderness. Neurologic: The patient is alert and oriented x4. LABS: White blood cell count 15, hemoglobin 9.9, hematocrit 29, platelets 119. Sodium 134, potassium 3.5, chloride 99, CO2 14. BUN 89, creatinine 5.8, glucose 145, calcium 6.8, phosphorus 7, magnesium 2.4. X-RAYS: Chest x-ray shows mild central vascular distention. ASSESSMENT AND PLAN: 1. Accelerated hypertension. Continue to titrate the patient's antihypertensive medications as directed by the privacy manager. 2. Acute kidney injury on chronic kidney disease. Unchanged. Management as per the wardrobe stylist. 3. Metabolic acidosis. The patient has been started on sodium bicarbonate. 4. Abdominal pain. Will consult with Gastroenterology. 5. Suspected lymphoma. We will await recommendations from the oncologist. 6. Diabetes mellitus type 2. Continue with sliding scale insulin. 7. Gastrointestinal prophylaxis. Continue on Protonix. 8. Thrombocytopenia. Will monitor the patient's platelet count closely. cc: Delmy Rosales MD [facility]
[2018-12-23] MEDS: DULCOLAX PR SCH (20:48)
--- NOTE | 2018-12-23 21:50 | GASTROENTEROLOGY CONSULTATION ---
DATE: 12/23/2018 REASON FOR CONSULTATION: Abdominal pain. HISTORY OF PRESENT ILLNESS: This is a 43-year-old, male who reported to the hospital with abdominal pain for the last 4 to 5 days. On evaluation, he was found to have significant hypertension with blood pressure in the 200s/150s. He has had consultation with cardiology and also nephrology. He had an elevated BUN and creatinine of 86 and 5.6. During workup he had abdominal pelvis CT scan that showed retroperitoneal mesenteric adenopathy consistent with possible lymphoma. Also, cardiomegaly with pericardial effusion and ascites. At the time of my evaluation, the patient was awake but he was a little drowsy. He was able to assist with most of his review of systems. He states he had ran out of his blood pressure medication and had been out of medicines for about a week. He had really denied any nausea or vomiting but did report abdominal pain and abdominal distention over the last several weeks. He has reported some issues with constipation and states he probably has only had a bowel movement 3 times over the last 2 weeks. He states he took some medications at home. He has denied any visible blood in the stool or black stools. Patient has never had an EGD or colonoscopy per his report. PAST MEDICAL HISTORY: Hypertension. PAST SURGICAL HISTORY: None reported. ALLERGIES: No known drug allergies. HOME MEDICATIONS: Lopressor 100 mg daily, valsartan 320 mg daily. SOCIAL HISTORY: He is single. No children. He does work, but I could not understand where he said he worked at. No reported tobacco use. Occasional alcohol use. He reports occasionally smoking methamphetamine. FAMILY HISTORY: Mother of CHF. Father . REVIEW OF SYSTEMS: Per history of present illness. PHYSICAL EXAMINATION: Vital Signs: Temperature 99.1 degrees, pulse 100, respirations 21, blood pressure 170/114. General: Patient is awake, but drowsy. No acute distress noted. HEENT: Normocephalic, atraumatic. Pupils equal, round, reactive to light. Sclerae nonicteric. Respiratory essentially clear. Cardiovascular: Regular rate and rhythm. Abdomen: Tender diffusely with palpation. Distention noted. Somewhat tense abdomen. The patient has complained of constipation. Extremities: With some bilateral lower extremity edema noted. DIAGNOSTIC RESULTS: Laboratory: WBC 15.74, hemoglobin 9.9, hematocrit 29.6, MCV 75.9, platelet 119,000. Chemistry: Sodium 134, potassium 3.5, chloride 99, CO2 14, BUN 89, creatinine 5.8, glucose 145. Total bilirubin 0.32. AST 21, ALT 17, alkaline phosphatase 105. IMAGING: Abdominal pelvis CT scan showed retroperitoneal and mesenteric adenopathy consistent with lymphoma. Possibility of lymphomatosis involvement in the mid jejunum could not be excluded. Less likely would be primary lesion of the small bowel. Further findings of cardiomegaly and pericardial infusion with minimal ascites. ASSESSMENT AND PLAN: 1. Severe hypertension with hypertensive crisis. Patient has been seen by Cardiology, receiving medication. 2. Acute/chronic renal failure. Patient has been seen by nephrology. Continue recommendations. 3. Abdominal pain with CT scan showing possible retroperitoneal mesenteric adenopathy. Possible lymphoma. Patient has been seen by Dr. Franco. As far as Gastroenterology is concerned abdominal pain possibility from findings of lymphoma. The patient has also had constipation. Recommend to continue current laxative regimen as ordered. We will adjust according to his response. Depending on Dr. Franco's recommendation, once patient is stable enough to proceed, one option would be EGD with push enteroscopy to evaluate the jejunum. Further plans to be made as needed. I have discussed this case with Dr. Davis. Thank you for this consultation. Dictated by MIGUELITO Murray for Omar Davis MD cc: MIGUELITO Sandhu MD [facility]
[2018-12-24] MEDS: HUMULIN R SUBQ SCH ×4 (06:08→20:42)
[2018-12-24 06:12] LABS: HEMATOCRIT 29.6 % (42.0-52.0); HEMOGLOBIN 9.7 g/dL (14.0-18.0); MCH 25.5 PG (27-31); MCHC 32.8 g/dL (33-37); MCV 77.7 FL (81-99); RBC 3.81 XMIL (4.7-6.1); RDW 15.9 % (11.5-14.5); WBC 13.82 X1000 (4.8-10.8)
[2018-12-24 06:13] LABS: BASO# 0.02 X1000 (0.0-0.2); BASO% 0.1 % (0.0-0.8); EOS# 0.36 X1000 (0.0-0.7); EOS% 2.6 % (0.0-10.0); IMM GRAN# 0.03 X1000 (0.0-0.04); IMM GRAN% 0.2 % (0.0-0.5); LYMPH# 1.16 X1000 (1.2-3.4); LYMPH% 8.4 % (20.5-51.1); MONO# 0.96 X1000 (0.11-0.59); MONO% 6.9 % (1.7-9.3); MPV 11.7 FL (7.4-10.4); NEUT# 11.29 X1000 (1.4-6.5); NEUT% 81.8 % (42.2-75.2); PLT 140 X1000 (130-400)
[2018-12-24] MEDS: ZYVOX 600 MG/D5W 600 MG/300 ML IVPB IV SCH ×2 (06:13→18:26)
[2018-12-24] MEDS: PROTONIX IV SCH (06:13)
[2018-12-24] MEDS: SODIUM CHLORIDE 0.9% INJ SCH (06:14)
[2018-12-24 06:35] LABS: ALBUMIN 2.7 g/dL (3.5-5.0); CALCIUM 7.1 mg/dL (8.8-10.2); CREATININE 5.5 mg/dL (0.7-1.2); PHOSPHORUS 7.8 mg/dL (2.7-4.5); POTASSIUM 3.5 mmol/L (3.5-5.1)
[2018-12-24] MEDS: COLACE PO SCH ×2 (09:18→20:48)
[2018-12-24] MEDS: SODIUM BICARBONATE PO SCH ×2 (09:18→20:49)
[2018-12-24] MEDS: NORVASC PO SCH (09:18)
[2018-12-24] MEDS: LASIX PO SCH ×2 (09:18→20:48)
[2018-12-24] MEDS: TRANDATE PO SCH ×2 (09:18→20:48)
[2018-12-24] MEDS: ZOFRAN IV PRN (09:18)
[2018-12-24] MEDS: MIRALAX PO SCH ×2 (09:19→20:47)
[2018-12-24] MEDS: MAXIPIME 1 GM in NS 50 ML IV SCH (09:19)
--- NOTE | 2018-12-24 11:00 | PROGRESS NOTE ---
DATE: 12/24/2018 SUBJECTIVE: The patient continues without chest discomfort or shortness of breath on room air. OBJECTIVE: Vital Signs: Blood pressure 156/98, heart rate 94, oxygen saturation 94% on room air. Neck: Jugular venous distention is not appreciated. Chest: Clear to auscultation. Cardiac: Regular rate and rhythm without appreciable murmur or gallop. Extremities: Without edema. LABORATORY DATA: Includes white blood cell count 13.82, hematocrit 29.6, hemoglobin 9.7, platelet count 140,000. Sodium 131, potassium 3.5, chloride 99, carbon dioxide 17, BUN 79, creatinine 5.5, glucose 135. IMPRESSION: 1. Severe hypertension with hypertensive urgency in the setting of noncompliance. Blood pressure coming under control. 2. Hypertensive cardiovascular disease with moderate concentric left ventricular hypertrophy and estimated left ventricular ejection fraction 40% to 45%. 3. Acute on chronic renal failure with poorly atrophic kidneys. 4. Abdominal pain with associated retroperitoneal adenopathy, suggesting likely lymphoma. RECOMMENDATIONS: 1. Agree with increasing amlodipine to 10 mg daily. 2. Reasonable for the patient to transfer to telemetry. 3. At this point, will defer further management of hypertension to Nephrology given the patient's significant renal impairment. I will be glad to see further on an as needed basis. cc: Darian Story MD
--- NOTE | 2018-12-24 13:21 | Diag Imaging Result Doc PS360 ---
EXAM: CHEST-PORTABLE 12/24/2018 HISTORY: dyspnea TECHNIQUE: AP portable at 1309 COMMENT: There is left ventricular enlargement and increased pulmonary vascularity. The inspiration is less optimal than on 12/23/2018. Otherwise are has been no significant change. IMPRESSION: Cardiomegaly. Electronically signed by Rubén Krause 12/24/2018 1:19 PM
--- NOTE | 2018-12-24 16:08 | PROGRESS NOTE ---
DATE: 12/24/2018 SUBJECTIVE: The patient is resting comfortably in bed. No acute events noted overnight. OBJECTIVE: Vital Signs: Temperature 98.7 degrees, blood pressure 150/104, heart rate 92, respirations 19, O2 saturation 98% on 3 L nasal cannula. Intake 3.4 L. Output 3.7 L. General: This is a chronically ill-appearing middle-aged male lying in bed in no acute distress. Heart: S1, S2 normal. Tachycardic. Lungs: Diminished breath sounds. No wheezing. Abdomen: Positive bowel sounds. Soft, obese, nontender, nondistended. Extremities: 1+ edema bilaterally. Neurologic: The patient is awake. The patient is alert and oriented. LABS: White count 13, hemoglobin 9.7, hematocrit 29, platelets 140,000, sodium 131, potassium 3.5, chloride 99, CO2 17, BUN 79, creatinine 5.5, glucose 135, phosphorus 7.8, calcium 7.1. Chest x-ray shows cardiomegaly. ASSESSMENT AND PLAN: 1. Uncontrolled hypertension. Continue to titrate the patient's antihypertensive medications as directed by the cashier host/hostess. 2. Acute kidney injury on chronic kidney disease. The patient currently has a 24-hour urine collection in progress. Further management as per the corporate development associate. 3. Volume overload. The patient has been started on diuretic therapy. Continue to monitor closely. 4. Metabolic acidosis. Slightly improved. Continue on sodium bicarbonate tablets. 5. Suspected lymphoma. The patient will require a PET scan once his acute issues have resolved as per . 6. Diabetes mellitus type 2. Continue on sliding scale insulin. 7. Gastrointestinal prophylaxis. Continue on Protonix. 8. Leukocytosis. Slowly improving. 9. Microcytic anemia. Will check iron studies. 10. Deep vein thrombosis prophylaxis. Will start the patient on heparin. cc: Delmy Rosales MD [facility]
--- NOTE | 2018-12-24 16:50 | HEMO/ONC PROGRESS NOTE ---
DATE: 12/24/2018 SUBJECTIVE: The patient is resting comfortably in bed. He states he feels better than he did yesterday. He had no acute events overnight. He remains lethargic. OBJECTIVE: Vital Signs: Temperature 98.7 degrees, pulse rate 92, blood pressure 150/104, O2 saturation 91% on room air, 0/10 pain. General: This is a chronically ill-appearing male in no acute distress. HEENT: Sclerae is anicteric. PERRLA. Oral mucosa is dry. Cardiovascular: Normal S1, S2. Heart rate and rhythm regular. Respiratory: Diminished breath sounds throughout, but clear otherwise. Gastrointestinal: Abdomen is protuberant, soft, nontender. Extremities: There is +1 lower extremity edema noted. Neurological: Awake, alert, and oriented. Speech remains difficult to understand. LABORATORY: WBCs 13.82, hemoglobin 9.7, hematocrit 29.6, platelet count 140,000, ANC 11.29. RADIOLOGY: Chest x-ray shows cardiomegaly. ASSESSMENT: 1. Retroperitoneal mesenteric adenopathy. 2. Hypertensive urgency. 3. Acute renal failure with atrophic kidney. Nephrology following. 4. Leukocytosis, most likely reactive. PLAN: Continue to treat the patient with medical management. We will evaluate once his acute issues have resolved. The patient will need a PET scan and further evaluation that can be done outpatient. We will continue to follow as needed. Dictated by MIGUELITO Anthony for Anderson Frnaco MD cc: Anderson Franco MD [facility]
[2018-12-24] MEDS: TUMS EXTRA STRENGTH PO SCH (18:26)
[2018-12-24] MEDS: LABETALOL IV PRN (18:36)
--- NOTE | 2018-12-24 20:18 | NEPHROLOGY PROGRESS NOTE ---
DATE: 12/24/2018 TIME SEEN: 0700. SUBJECTIVE: Mr. Zarate is resting in bed. States that he has some swelling at this time to his hands and his feet. Denies chest pain or increased work of breathing. OBJECTIVE: Vital Signs: Temperature 99 degrees, blood pressure 139/102, heart rate 95, respirations are 16. He is on 2 L nasal cannula, last recorded saturation 95%. He has had 3150 in. He has had 3 L out to void in the last 24 hours. LABORATORY DATA: Sodium 131, potassium 3.5, chloride 99, CO2 17, BUN 79, creatinine is 5.5, glucose 135. His anion gap is 15, calcium 7.1, phosphorus 7.8, albumin 2.7. White count 13.82, hemoglobin 9.7, hematocrit 29.6 with a platelet count of 140,000. PHYSICAL EXAMINATION: General: This is a 43-year-old white male. He is currently resting in bed. He appears chronically ill in no acute distress. Skin: Warm and dry. HEENT: Normocephalic, atraumatic. Conjunctiva is pale. He has ELVA. Mucous membranes are dry. Neck: Supple. Trachea midline. He has positive JVD. Cardiovascular: Regular rate and rhythm. He is tachycardic on the monitor. He has an S4. Lungs: Clear to auscultation bilaterally. Equal excursion with poor inspiratory effort, remains on O2. Abdomen: Slightly distended, nontender. Positive bowel sounds. Genitourinary: Not inspected. Patient has been voiding adequate amount. Extremities: Have 2+ lower extremity edema with 1+ upper extremity edema. Neurological: Alert and oriented x3. ASSESSMENT AND PLAN: 1. Acute kidney injury on chronic kidney disease stage 3. Patient's BUN and creatinine have remained fairly stable if not slightly improved over the last 24 hours. Adequate urine output is documented. We will continue conservative care for now. We will focus on BP control. 2. Electrolytes and acid-base balance. These are stable with known hyponatremia, more likely secondary to #1. He remains on sodium bicarbonate started yesterday. The patient also has an elevated phosphorus. We will start him on Tums with his meals for phosphorus binding. 3. Anemia. Patient's hemoglobin remains low, but stable. 4. Lymphoma noted on CT of abdomen. Dr. Franco to follow. 5. Hypertension. We have increased patient's amlodipine to 10 mg. Remains on labetalol. We will add Lasix 80 mg b.i.d. and monitor. Added clonidine. rg 6. I would like to thank you for allowing us to follow with this patient. Dictated by MIGUELITO Avalos for Leon Alba MD [id number] encounter, data reviewed, discussed with Nithya Rasmussen on 12/24/18. I agree with the above assessment and plan of care. cc: MIGUELITO Avalos MD [facility]
[2018-12-24] MEDS: HEPARIN SUBQ SCH (20:48)
[2018-12-24] MEDS: DULCOLAX PR SCH (23:39)
[2018-12-25] MEDS: HEPARIN SUBQ SCH ×3 (05:10→20:10)
[2018-12-25] MEDS: ZYVOX 600 MG/D5W 600 MG/300 ML IVPB IV SCH ×2 (05:11→20:09)
[2018-12-25 06:17] LABS: BASO# 0.03 X1000 (0.0-0.2); BASO% 0.2 % (0.0-0.8); EOS# 0.58 X1000 (0.0-0.7); EOS% 4.6 % (0.0-10.0); HEMATOCRIT 30.4 % (42.0-52.0); HEMOGLOBIN 9.8 g/dL (14.0-18.0); IMM GRAN# 0.09 X1000 (0.0-0.04); IMM GRAN% 0.7 % (0.0-0.5); LYMPH# 1.03 X1000 (1.2-3.4); LYMPH% 8.2 % (20.5-51.1); MCH 25.3 PG (27-31); MCHC 32.2 g/dL (33-37); MCV 78.6 FL (81-99); MONO# 0.85 X1000 (0.11-0.59); MONO% 6.8 % (1.7-9.3); MPV 12.7 FL (7.4-10.4); NEUT# 9.99 X1000 (1.4-6.5); NEUT% 79.5 % (42.2-75.2); PLT 183 X1000 (130-400); RBC 3.87 XMIL (4.7-6.1); RDW 16.1 % (11.5-14.5); WBC 12.57 X1000 (4.8-10.8)
[2018-12-25] MEDS: HUMULIN R SUBQ SCH ×4 (06:19→20:12)
[2018-12-25 06:21] LABS: RETIC% 2.66 % (0.8-2.1); RETIC-HE 27.2 PG (28.2-36.6)
[2018-12-25] MEDS: PROTONIX IV SCH (06:26)
[2018-12-25 06:50] LABS: ALBUMIN 2.7 g/dL (3.5-5.0); CREATININE 5.8 mg/dL (0.7-1.2); IRON SATURATION 8 %; PHOSPHORUS 8.2 mg/dL (2.7-4.5); POTASSIUM 3.6 mmol/L (3.5-5.1); TIBC 268 ug/dL; TOTAL IRON 21 ug/dL (53-167); UNBOUND IRON 247 ug/dL (112-346)
[2018-12-25] MEDS: LABETALOL IV PRN (06:55)
[2018-12-25 07:16] LABS: FERRITIN 252 ng/mL (30-400)
[2018-12-25] MEDS ORDERED: LASIX PO SCH (09:00)
[2018-12-25 09:58] LABS: CREATININE 5.4 mg/dL (0.7-1.2)
[2018-12-25] MEDS: MAXIPIME 1 GM in NS 50 ML IV SCH (10:27)
[2018-12-25] MEDS: NORVASC PO SCH (10:28)
[2018-12-25] MEDS: SODIUM BICARBONATE PO SCH ×2 (10:28→20:09)
[2018-12-25] MEDS: CATAPRES PO SCH ×3 (10:29→20:10)
[2018-12-25] MEDS: TRANDATE PO SCH ×2 (10:29→20:10)
[2018-12-25] MEDS: COLACE PO SCH ×2 (10:30→20:10)
[2018-12-25] MEDS: FOLIC ACID PO SCH (10:34)
[2018-12-25] MEDS: TUMS EXTRA STRENGTH PO SCH ×3 (10:34→16:10)
[2018-12-25] MEDS: ZOFRAN IV PRN (10:41)
[2018-12-25 11:44] LABS: UR CREATININE 40.9 mg/dL (14-26); UR CREATININE TOTAL 1603.3 mg/24 (800-1800); UR PROTEIN 79.5 mg/dL
[2018-12-25] MEDS: MIRALAX PO SCH ×2 (11:48→20:11)
--- NOTE | 2018-12-25 14:33 | PROGRESS NOTE ---
DATE: 12/25/2018 SUBJECTIVE: The patient is resting in bed. He is awake and alert, but forgetful. His blood pressure is elevated. OBJECTIVE: Vital Signs: Temperature 98 degrees, blood pressure 140/95, heart rate 84, respirations 16, O2 saturation 99% on 3 L nasal cannula. General: This is a overweight male lying in bed in no acute distress. Heart: S1, S2 normal. Tachycardic. Lungs: Diminished breath sounds at the bases. No wheezing. No rales. Abdomen: Positive bowel sounds. Soft, obese, nontender, nondistended. Extremities: 1+ edema bilaterally. Neurologic: The patient is alert and oriented x3. LABS: White blood cell count 12, hemoglobin 9.8, hematocrit 30, platelets 183,000. Sodium 138, potassium 3.6, chloride 103, CO2 17, BUN 78, creatinine 5.4, glucose 125, calcium 8, phos 8.2. ASSESSMENT AND PLAN: 1. Uncontrolled hypertension. Continue with antihypertensive titration as directed by the management and budget analyst. 2. Acute kidney injury on chronic kidney disease. Stable. Management as per the management and budget analyst. 3. Suspected lymphoma. The patient will follow up with Dr. Franco as outpatient to undergo further imaging and treatment discussion. 4. Diabetes mellitus type 2. Continue with sliding scale insulin. 5. Iron deficiency anemia. The hemoglobin and hematocrit is stable. 6. Leukocytosis. Slowly improving. 7. Obesity. Aware. 8. Metabolic acidosis. The patient is currently on sodium bicarbonate tablets. 9. Deep vein thrombosis prophylaxis. Continue on heparin. DISPOSITION: The patient is stable for transfer to [facility]. We will consult physical therapy. cc: MD ISIAH Rocha
--- NOTE | 2018-12-25 14:55 | NEPHROLOGY PROGRESS NOTE ---
DATE: 12/25/2018 DATE AND TIME SEEN: 12/25/2018 at 07:55. SUBJECTIVE: Mr. Zarate is resting quietly in bed. States that his abdomen his giving him large amounts of discomfort. OBJECTIVE: Vital Signs: Temperature 98.3 degrees blood pressure 166/109, heart rate is 92, respirations are 14. He is currently on room air. His last recorded saturation was 98%. He has had 1610 in, 6050 out with void. LABORATORY DATA: Sodium 138, potassium 3.6, chloride 103, CO2 17, BUN 78, creatinine 5.8, glucose 125. His anion gap is 18, calcium 8, phosphorus 8.2, albumin 2.7. His white count 12.51, hemoglobin 9.8, hematocrit 30.4 with a platelet count of 183,000. The patient has a PTH of 363 with a TSH of 1.55. PHYSICAL EXAMINATION: General: This is a 43-year-old white male. He is currently resting quietly in bed. He appears chronically ill, no acute distress. Skin: Warm and dry. HEENT: Normocephalic, atraumatic. Conjunctiva is pale. He has ELVA. Mucous membranes are dry. Neck: Supple. Trachea midline. Trace evidence of JVD. Cardiovascular: Regular rate and rhythm. He is tachycardic on the monitor. The patient has a S4 that is present. Lungs: Diminished breath sounds with poor inspiratory effort. Clear to auscultation anterior. Remains on room air. Abdomen: Tender on palpation, slightly distended. Hypo bowel sounds. Genitourinary: Not inspected. Patient is voiding, adequate amount documented. Extremities: He has improved to 1+ lower extremity edema bilateral. No edema noted to the hands or the upper extremities. Neurological: Alert and oriented x3. ASSESSMENT AND PLAN: 1. Acute kidney injury on chronic kidney disease stage 3. Patient's BUN and creatinine have taken a slight bump, more than likely secondary to a diuretic affect with Lasix 80 b.i.d. ordered yesterday. Adequate urine output is documented. A 24 hour urine is still in progress. We will await his 24 hour urine results. Re-evaluate his BUN and creatinine in the a.m. 2. Fluid volume overload. We had started him on Lasix 80 mg b.i.d. yesterday for swelling and positive JVD. He has responded nicely with greater than 6 L out. We will decrease his Lasix to 80 mg daily starting today. We will re-evaluate his labs and look for results of his 24 hour urine in the a.m. 3. Electrolytes and acid-base balance. Patient's hyponatremia has improved with fluid volume resuscitation with Lasix. He remains acidotic. He continues on sodium bicarbonate. The patient continues with an elevated phosphorus level up to 8.2 today. We will determine starting the patient on Tums to assist with his phosphorus levels with food. 4. Anemia. This remains low but stable. 5. Lymphoma on CT of abdomen. Dr. Salvador polanco. Would like to thank you for allowing us to follow with this patient. Dictated by MIGUELITO Avalos for Leon Alba MD cc: MIGUELITO Avalos MD
--- NOTE | 2018-12-25 19:20 | HEMO/ONC PROGRESS NOTE ---
DATE: 12/25/2018 SUBJECTIVE: Mr. Zarate is resting comfortably in bed. He states he feels better than he has in previous days. He is a little more awake today. He does have difficulty answering some questions, and his blood pressure remains elevated. OBJECTIVE: Vital signs: Temperature 99.1 degrees, pulse rate 90, respiratory rate 12, blood pressure 143/90, O2 saturation 99% on nasal cannula at 3 L. He is in 0/10 pain. In general, this is an obese male in no acute distress. HEENT: Sclerae are anicteric. PERRLA. Oral mucosa is dry. Cardiovascular: Normal S1, S2. Tachycardic. Respiratory: Diminished breath sounds remain, however, clear throughout. Gastrointestinal: Abdomen is protuberant, soft, nontender.Extremities: Lower extremity edema +1. Neurological: Awake, alert and oriented. LABORATORY DATA: WBCs 12.57, hemoglobin 9.8, hematocrit 30.4, platelet count 183,000, ANC 9.99, reticulocyte count 2.66, creatinine 5.4. Iron 21, iron saturation 8, ferritin 252, LDH 369, albumin 2.7, vitamin B12 is 354, folate 3.5. ASSESSMENT: 1. Retroperitoneal mesenteric adenopathy. 2. Hypertensive urgency. 3. Acute renal failure with atrophic kidney. Nephrology following. 4. Leukocytosis, most likely reactive. 5. Microcytic anemia PLAN: We will replace the patient's iron, B12 and folate. Continue current medical management. Plan for PET scan and biopsy outpatient. We will continue to follow the patient peripherally while in the hospital. Please contact us if needed over the weekend. Dictated by MIGUELITO Anthony for Anderson Franco MD cc: Anderson Franco MD [facility]
[2018-12-25] MEDS: DULCOLAX PR SCH (20:11)
[2018-12-26] MEDS: HEPARIN SUBQ SCH ×3 (04:48→21:18)
[2018-12-26] MEDS: ZYVOX 600 MG/D5W 600 MG/300 ML IVPB IV SCH ×3 (04:48→17:28)
[2018-12-26] MEDS: PROTONIX IV SCH (06:01)
[2018-12-26] MEDS: HUMULIN R SUBQ SCH ×4 (06:02→20:53)
[2018-12-26 06:50] LABS: HEMATOCRIT 29.2 % (42.0-52.0); HEMOGLOBIN 9.5 g/dL (14.0-18.0); MCH 26.2 PG (27-31); MCHC 32.5 g/dL (33-37); MCV 80.4 FL (81-99); MPV 11.6 FL (7.4-10.4); RBC 3.63 XMIL (4.7-6.1); WBC 10.95 X1000 (4.8-10.8)
[2018-12-26 07:12] LABS: ALBUMIN 2.5 g/dL (3.5-5.0); CALCIUM 7.8 mg/dL (8.8-10.2); CREATININE 5.5 mg/dL (0.7-1.2); PHOSPHORUS 6.5 mg/dL (2.7-4.5); POTASSIUM 3.2 mmol/L (3.5-5.1)
--- NOTE | 2018-12-26 09:01 | Diag Imaging Result Doc PS360 ---
EXAM: FLAT/UPRIGHT ABD/1 VIEW CHEST 12/26/2018 HISTORY: pulmonary edema/constipation TECHNIQUE: Flat and upright abdomen with AP chest COMMENT: The heart size is enlarged. There is some atelectasis or pneumonia in the right lower lobe. There is a fairly large amount of stool in the right colon and transverse colon. The stomach and small bowel are not distended. There is no evidence of organomegaly or mass. IMPRESSION: 1. Cardiomegaly. 2. Atelectasis versus pneumonia right lower lobe. 3. Constipation. Electronically signed by Rubén Krause 12/26/2018 8:58 AM
[2018-12-26] MEDS: TUMS EXTRA STRENGTH PO SCH ×3 (09:31→17:28)
[2018-12-26] MEDS: CATAPRES PO SCH ×3 (09:32→17:28)
[2018-12-26] MEDS: COLACE PO SCH ×2 (09:32→21:18)
[2018-12-26] MEDS: MAXIPIME 1 GM in NS 50 ML IV SCH (09:32)
[2018-12-26] MEDS: TRANDATE PO SCH ×2 (09:32→21:18)
[2018-12-26] MEDS: FOLIC ACID PO SCH (09:32)
[2018-12-26] MEDS: NORVASC PO SCH (09:32)
[2018-12-26] MEDS: SODIUM BICARBONATE PO SCH ×2 (09:32→21:18)
[2018-12-26] MEDS: LASIX PO SCH (09:32)
--- NOTE | 2018-12-26 10:07 | NEPHROLOGY PROGRESS NOTE ---
DATE: 12/26/2018 SUBJECTIVE: Mr. Zarate is resting quietly in bed. He denies any pain. No increased work of breathing. VITAL SIGNS: Temperature 97.5 degrees, blood pressure 147/98, heart rate 85, respirations 18, he is on 3 L nasal cannula. Last recorded saturation 100%, he has had 1845 in and 3300 out to [place] catheter. LABORATORY DATA: Sodium 137, potassium 3.2, chloride 99, CO2 19, BUN 78, creatinine 5.5, glucose 164. His anion gap is 19, calcium 7.8, phosphorus 6.5, albumin 2.5. White count 10.95, hemoglobin 7.5, hematocrit 29.2, platelet count 229,000. A 24-hour urine creatinine clearance is 21% with a total proteinuria of 3116, resulted yesterday. PHYSICAL EXAMINATION: General: This is a 43-year-old white male who is currently resting in bed. He appears in no acute distress, though he appears chronically ill. Skin: Warm and dry. HEENT: Normocephalic, atraumatic. Conjunctiva is pale pink. He has PERRL. Mucous membranes are dry. Neck: Supple, trachea midline, no evidence of JVD. Cardiovascular: Regular rate and rhythm. He is without murmur or gallop. Lungs: Clear to auscultation bilaterally. Equal excursion. He is on O2. Abdomen: Soft, large, round, nontender, positive bowel sounds. Genitourinary: Not inspected. The patient has had adequate urine output documented to Meadows catheter. Extremities: Trace lower extremity edema. This has improved over the last 3 days. Integumentary: No rashes or lesions evident. Neurological: Alert and oriented x3. ASSESSMENT AND PLAN: 1. Acute kidney injury on chronic kidney disease stage 3. Patient's BUN and creatinine have remained stable, more than likely secondary to diuretic effect. We will again decrease his Lasix to 40 mg today from 80. Continue to monitor. A 24-hour urine indicated a creatinine clearance of 21% with a total proteinuria of 3 g. We have had this discussion with the patient that he will need to follow closely in our office after discharge. 2. Fluid volume overload. This continues to improve. The patient is down to 3 L nasal cannula. We will decrease his Lasix to 40 mg today. Continue IV with indications of possibly changing this over to p.o. by Friday. 1. Electrolytes. Patient remains hyponatremic. This is improved. 2. Acid-base balance. Patient remains on sodium bicarbonate. 3. Elevated phosphorus level. This is improved with Tums. 4. Anemia. This is low but stable. 5. Lymphoma. This is followed by Dr. Franco with plan for followup on an outpatient basis after discharge. I would like to thank you for allowing us to follow with this patient. Dictated by MIGUELITO Avalos for Leon Alba MD cc: MIGUELITO Avlaos MD
[2018-12-26] MEDS: MIRALAX PO SCH ×2 (11:04→20:55)
--- NOTE | 2018-12-26 17:04 | PROGRESS NOTE ---
DATE: 12/26/2018 SUBJECTIVE: The patient is resting comfortably in bed. He has no complaints. OBJECTIVE: Vital Signs: Temperature 97.6 degrees, blood pressure 136/85, heart rate 82, respirations 18, O2 saturation 98% on 2 L nasal cannula. General: This is a morbidly obese male lying in bed in no acute distress. Heart: S1, S2 normal. Regular rate and rhythm. Lungs: Clear to auscultation bilaterally. No wheezing. No rales. No rhonchi. Abdomen: Positive bowel sounds. Soft, nontender, nondistended. Extremities: No edema, no cyanosis. Neurologic: The patient is alert and oriented x3. LABS: White blood cell count 10, hemoglobin 9.5, hematocrit 29, platelets 229. Sodium 137, potassium 3.2, chloride 99, CO2 19. BUN 78, creatinine 5.5, glucose 164, phosphorus 6.5. ASSESSMENT AND PLAN: 1. Acute kidney injury on chronic kidney disease. Stable. The patient will follow up with Dr. Alba as outpatient. 2. Suspected lymphoma. The patient will follow up with Dr. Franco as outpatient upon discharge to undergo further imaging and treatment discussions. 3. Hypertension. Continue on the current antihypertensive regimen. 4. Anemia. Stable. 5. Diabetes mellitus type 2. We will start the patient on Levemir. 6. Obesity. The patient has been counseled about weight loss. 7. Metabolic acidosis. Continue on sodium bicarbonate. 8. Deep vein thrombosis prophylaxis. Continue on heparin. 9. Disposition: The patient has been doing well with physical therapy. We will wean off the supplemental oxygen and transfer the patient to the medical floor. If the patient continues to improve, he may be able to be discharged home tomorrow. cc: Delmy Rosales MD [facility]
[2018-12-26] MEDS: DULCOLAX PR SCH ×2 (20:54→21:18)
[2018-12-26] MEDS: ICAR-C PLUS PO SCH (21:18)
[2018-12-27] MEDS: ZYVOX 600 MG/D5W 600 MG/300 ML IVPB IV SCH (05:08)
[2018-12-27] MEDS: HEPARIN SUBQ SCH (05:09)
[2018-12-27] MEDS: HUMULIN R SUBQ SCH (06:13)
[2018-12-27] MEDS: SODIUM CHLORIDE 0.9% INJ SCH (06:17)
[2018-12-27] MEDS: PROTONIX IV SCH (06:17)
[2018-12-27] MEDS ORDERED: LACTULOSE PO ONE (07:53)
[2018-12-27 08:11] VITALS: BP 150/93
[2018-12-27] MEDS: ICAR-C PLUS PO SCH (08:43)
[2018-12-27] MEDS: SODIUM BICARBONATE PO SCH (08:43)
[2018-12-27] MEDS: FOLIC ACID PO SCH (08:43)
[2018-12-27] MEDS: TRANDATE PO SCH (08:43)
[2018-12-27] MEDS: LASIX PO SCH (08:43)
[2018-12-27] MEDS: NORVASC PO SCH (08:43)
[2018-12-27] MEDS: TUMS EXTRA STRENGTH PO SCH (08:43)
[2018-12-27] MEDS: COLACE PO SCH (08:43)
[2018-12-27] MEDS: CATAPRES PO SCH (08:43)
[2018-12-27] MEDS: MAXIPIME 1 GM in NS 50 ML IV SCH (08:44)
[2018-12-27] MEDS: MIRALAX PO SCH (08:44)
[2018-12-27] MEDS ORDERED: LEVEMIR SUBQ SCH (09:00)
[2018-12-27] MEDS ORDERED: INSULIN PEN NEEDLES ONE (10:39)
--- NOTE | 2019-01-03 18:28 | DISCHARGE SUMMARY ---
ADMISSION DATE: 12/22/2018 DISCHARGE DATE: 12/27/2018 FINAL DISCHARGE DIAGNOSES: 1. Hypertensive urgency. 2. Acute kidney injury on chronic kidney disease. 3. Diabetes mellitus type 2. 4. Morbid obesity. 5. Anemia of chronic disease. 6. Suspected lymphoma with retroperitoneal and mesenteric adenopathy. 7. Metabolic acidosis. 8. Metabolic encephalopathy. 9. Cardiomyopathy. CONSULTATIONS: 1. Nephrology consultation with Dr. Alba. 2. Oncology consultation with Dr. Franco. 3. Cardiology consultation with Dr. Story. HOSPITAL COURSE: Mr. Zarate is a 43-year-old male with a history of chronic kidney disease, hypertension and obesity who presented to the ER with a chief complaint of abdominal pain. Upon arrival to the ER the patient was noted to be in hypertensive urgency with systolic blood pressures in the 220s and diastolics over 120. The patient was started on a Cardene drip. The patient was also noted to be in acute renal failure with a creatinine of 5.6 and a BUN of 86. The patient was started on IV fluids and admitted to the ICU. A CT of the abdomen and pelvis was done that also revealed retroperitoneal and mesenteric adenopathy consistent with lymphoma which was a new finding for the patient. The patient was also noted to be confused. Cardiology, Nephrology and Oncology were all consulted for assistance with the patient's care. Slowly the patient's mental status improved and he was able to be started on oral medications. The Cardene drip was weaned off once the patient was on adequate blood pressure control with oral medication. The patient's renal function remained stable. He was noted to have a GFR of 12 and his creatinine was noted to be stable at 5.5. He was noted to be in metabolic and metabolic acidosis and was started on sodium bicarbonate. Also the patient was noted to be diabetic and started on insulin therapy while hospitalized. Physical therapy was consulted to help the patient with mobility issues. The patient was eventually transferred to the medical floor. It was recommended by the oncologist that the patient get over his acute issues of blood pressure and renal instability before pursuing possible treatment and workup for the lymphoma. The patient was advised to follow up with Dr. Franco upon discharge from the hospital to discuss further imaging and treatment for lymphoma. The patient was also advised to keep his followup appointment with Dr. Alba for close monitoring of his kidney function. The patient was ultimately cleared for discharge home on 12/27/2018. DISCHARGE MEDICATIONS: 1. Norvasc 10 mg p.o. daily. 2. Calcium carbonate 750 mg oral 4 times a day. 3. Clonidine 0.1 mg oral 3 times a day. 4. Folic acid 1 mg oral daily. 5. Lasix 40 mg p.o. daily. 6. Levemir 5 units subcutaneous daily. 7. Labetalol 200 mg oral twice a day. 8. Sodium bicarbonate 1300 mg oral twice a day. DISCHARGE DIET: 1800 ADA diet, low-sodium diet. ACTIVITY: As tolerated. FOLLOWUP INSTRUCTIONS: The patient will need to follow up with Dr. Alba as scheduled by his clinic. The patient will need to follow up with Dr. Franco to further discuss further imaging and treatment of his lymphoma as scheduled by Dr. Franco's office. cc: Delmy Rosales MD [facility]
== END 2018-12-27 10:52 | disposition home or self-care (01) | DRG 304 ==
LOC: ED 06:46 → EDIPHOLD 06:47 → ICU 13:24 → 2N 12-25 11:43 → 1N 12-27 02:50
PROVIDERS: ATTEND Internal Medicine